=== PATIENT | male | born 1950 | race Caucasian/White ===

== ENCOUNTER → 2019-03-06 | Outpatient (REF) | payer BC ==
[2019-03-06 12:39] LABS: PLATELET COUNT, AUTOMATED 262 K/uL (150-450)
== END ==
LOC: ZZSTITCHES 12:31
PROVIDERS: ATTEND Physician Assistant
DX: R42 Dizziness and giddiness (principal); H65.01 Acute serous otitis media, right ear; R53.81 Other malaise
CPT/HCPCS: 82040; 82247; 82310; 82374; 82435; 82565; 82947; 84075; 84132; 84155; 84295; 84450; 84460; 84484; 84520; 85025